=== PATIENT | male | born 1955 | race Caucasian/White ===

== ENCOUNTER 2020-05-02 06:38 | Outpatient (CLI) | payer OTHER, SELFPAY ==
[2020-05-02 07:09] LABS: Basophils Absolute Auto 0.1 K/mm3 (0.0-0.1); Basophils Percent Auto 1.1 % (0.2-1.2); Eosinophils Absolute Auto 0.6 K/mm3 (0-0.3); Eosinophils Percent Auto 9.9 % (0-4.4); Hematocrit 49.7 % (42.0-52.0); Hemoglobin 16.5 g/dL (14.0-18.0); Immature Granulocyte Absolute 0.02 K/mm3 (0.00-0.031); Immature Granulocyte Percent A 0.3 % (0-0.5); Lymphocytes Absolute Auto 1.15 K/mm3 (0.9-3.2); Lymphocytes Percent Auto 18.6 % (18.3-44.2); Mean Corpuscular HGB Conc 33.2 g/dl (32-36); Mean Corpuscular Hemoglobin 30.6 pg (26-34); Mean Corpuscular Volume 92.2 fl (80-100); Mean Platelet Volume 10.2 fl (7.4-10.4); Monocytes Absolute Auto 0.5 K/mm3 (0.1-0.6); Monocytes Percent Auto 8.2 % (2.6-8.5); Neutrophils Absolute Auto 3.8 K/mm3 (1.3-6.7); Neutrophils Percent Auto 61.9 % (45.5-73.1); Platelet Count Result 283 k/mm3 (150-375); Red Blood Count 5.39 M/mm3 (4.6-6.20); Red Cell Distribution Width 13.4 % (11.5-14.5); White Blood Count 6.2 K/mm3 (4.5-10.0)
[2020-05-02 07:26] LABS: Alanine Aminotransferase 20 U/L (4-50); Albumin Level 4.3 g/dL (3.5-5.1); Alkaline Phosphatase 72 U/L (38-126); Anion Gap 7 mmol/L (8-16); Aspartate Amino Transferase 22 U/L (17-59); Bilirubin,Total 0.4 mg/dL (0.2-1.3); Blood Urea Nitrogen 22 mg/dL (9-20); Calcium 8.9 mg/dL (8.4-10.2); Carbon Dioxide 23 mmol/L (22-30); Chloride 107 mmol/L (98-107); Cholesterol 175 mg/dL (0-200); Estimated Glomerular Filt Rate > 60; Glucose 99 mg/dL (75-110); HDL Direct 45 mg/dL; Potassium 4.5 mmol/L (3.4-5.0); Sodium 137 mmol/L (137-145); Triglycerides 94 mg/dL (<150)
[2020-05-02 07:36] LABS: LDL Cholesterol Direct 104 mg/dL
[2020-05-02 07:56] LABS: Prostate Specific Antigen 3.5 ng/mL (< OR = 4.0)
[2020-05-02 08:28] LABS: Free T4 Free Thyroxine 1.01 ng/mL (0.78-2.19)
== END 2020-05-02 06:39 | disposition home or self-care (01) ==
PROVIDERS: PCP Family Medicine; Visit Provider Family Medicine
DX: R60.9 Edema, unspecified (principal); I10 Essential (primary) hypertension; Z79.899 Other long term (current) drug therapy; N40.0 Benign prostatic hyperplasia without lower urinary tract symptoms
CPT/HCPCS: 36415; 80053; 80061; 84153; 84439; 84443; 85025

== ENCOUNTER 2020-08-28 06:41 | Outpatient (CLI) | payer OTHER, SELFPAY | END 2020-08-28 06:42 | disposition home or self-care (01) | PROVIDERS: PCP Family Medicine; Visit Provider Family Medicine | DX: R97.20 Elevated prostate specific antigen [PSA] (principal) | CPT/HCPCS: 36415; 84153 ==

== ENCOUNTER 2021-06-27 06:37 | Outpatient (CLI) | payer OTHER, SELFPAY ==
[2021-06-27 07:17] LABS: Basophils Absolute Auto 0.1 K/mm3 (0.0-0.1); Basophils Percent Auto 1.1 % (0.2-1.2); Eosinophils Absolute Auto 0.3 K/mm3 (0-0.3); Eosinophils Percent Auto 6.1 % (0-4.4); Hematocrit 47.9 % (42.0-52.0); Hemoglobin 15.9 g/dL (14.0-18.0); Immature Granulocyte Absolute 0.02 K/mm3 (0.00-0.031); Immature Granulocyte Percent A 0.4 % (0-0.5); Lymphocytes Percent Auto 20.4 % (18.3-44.2); Mean Corpuscular HGB Conc 33.2 g/dl (32-36); Mean Corpuscular Hemoglobin 31.5 pg (26-34); Mean Corpuscular Volume 94.9 fl (80-100); Mean Platelet Volume 9.9 fl (7.4-10.4); Monocytes Absolute Auto 0.5 K/mm3 (0.1-0.6); Monocytes Percent Auto 9.3 % (2.6-8.5); Neutrophils Absolute Auto 3.4 K/mm3 (1.3-6.7); Neutrophils Percent Auto 62.7 % (45.5-73.1); Platelet Count Result 280 k/mm3 (150-375); Red Blood Count 5.05 M/mm3 (4.6-6.20); Red Cell Distribution Width 13.2 % (11.5-14.5); White Blood Count 5.4 K/mm3 (4.5-10.0)
[2021-06-27 07:28] LABS: Alanine Aminotransferase 17 U/L (4-50); Albumin Level 4.2 g/dL (3.5-5.1); Alkaline Phosphatase 60 U/L (38-126); Anion Gap 6 mmol/L (8-16); Aspartate Amino Transferase 21 U/L (17-59); Bilirubin,Total 0.7 mg/dL (0.2-1.3); Blood Urea Nitrogen 21 mg/dL (9-20); Calcium 9.3 mg/dL (8.4-10.2); Carbon Dioxide 26 mmol/L (22-30); Chloride 107 mmol/L (98-107); Cholesterol 178 mg/dL (0-200); Estimated Glomerular Filt Rate > 60; Glucose 103 mg/dL (65-110); HDL Direct 49 mg/dL; Potassium 4.5 mmol/L (3.4-5.0); Sodium 139 mmol/L (137-145); Triglycerides 125 mg/dL (<150)
[2021-06-27 07:39] LABS: LDL Cholesterol Direct 100 mg/dL
[2021-06-27 08:07] LABS: Free T4 Free Thyroxine 1.04 ng/mL (0.78-2.19)
== END 2021-06-27 06:38 | disposition home or self-care (01) ==
PROVIDERS: PCP Family Medicine; Visit Provider Family Medicine
DX: Z51.81 Encounter for therapeutic drug level monitoring (principal); Z79.899 Other long term (current) drug therapy; E66.09 Other obesity due to excess calories
CPT/HCPCS: 36415; 80053; 80061; 84439; 84443; 85025

== ENCOUNTER 2021-12-16 07:31 | Outpatient (CLI) | payer MEDICARE, OTHER, SELFPAY ==
--- NOTE | ~2021-12-16 | XR_ITS ---
EXAMINATION: XR shoulder RT min 2V INDICATION: Right arm pain TECHNIQUE: Four views of the right shoulder are submitted. COMPARISON: None FINDINGS: Normal alignment. No fracture. There is mild osteoarthritis of the glenohumeral and acromio clavicular joints. There is heterotopic ossification at the cranial aspect of the acromioclavicular j oint possibly reflecting prior injury. Soft tissues are unremarkable. IMPRESSION: 1. Osteoarthritis without acute osseous abnormality. Reviewed, dictated and finalized at location A.
--- NOTE | ~2021-12-16 | XR_ITS ---
EXAMINATION: XR humerus RT INDICATION: Right arm pain TECHNIQUE: Two views of the right humerus are obtained. COMPARISON: None available FINDINGS: Bone alignment is normal. There is no fracture. The soft tissues are unremarkable. IMPRESSION: 1. No acute osseous abnormality. Reviewed, dictated and finalized at location A.
--- NOTE | ~2021-12-16 | XR_ITS ---
EXAMINATION:XR_[id number] DATE: 12/16/2021 08:22 INDICATION: Neck pain TECHNIQUE: AP, lateral, lateral swimmers and odontoid views of the cervical spine are provided. COMPARISON: None FINDINGS: There are 4 mm of retrolisthesis of C5 on C6 and C6 on C7. The odontoid is intact. No fract ure is identified. There is severe loss of intervertebral disc space height at C5-6 and C6-7 and mode rate loss of disc space height at C4-5. The vertebral body heights are maintained. There is moderate to severe multilevel facet and uncovertebral joint osteoarthritis. Prevertebral soft tissues are norm al. IMPRESSION: 1. Severe cervical spondylosis without acute findings. Reviewed, dictated and finalized at location A.
[2021-12-16 08:20] LABS: Basophils Absolute Auto 0.1 K/mm3 (0.0-0.1); Basophils Percent Auto 0.7 % (0.2-1.2); Eosinophils Absolute Auto 0.2 K/mm3 (0-0.3); Eosinophils Percent Auto 3.3 % (0-4.4); Hematocrit 48.1 % (42.0-52.0); Hemoglobin 15.8 g/dL (14.0-18.0); Immature Granulocyte Absolute 0.04 K/mm3 (0.00-0.031); Immature Granulocyte Percent A 0.6 % (0-0.5); Lymphocytes Absolute Auto 1.24 K/mm3 (0.9-3.2); Lymphocytes Percent Auto 17.8 % (18.3-44.2); Mean Corpuscular HGB Conc 32.8 g/dl (32-36); Mean Corpuscular Hemoglobin 30.6 pg (26-34); Mean Corpuscular Volume 93.2 fl (80-100); Mean Platelet Volume 10.6 fl (7.4-10.4); Monocytes Absolute Auto 0.6 K/mm3 (0.1-0.6); Monocytes Percent Auto 7.9 % (2.6-8.5); Neutrophils Absolute Auto 4.9 K/mm3 (1.3-6.7); Neutrophils Percent Auto 69.7 % (45.5-73.1); Platelet Count Result 268 k/mm3 (150-375); Red Blood Count 5.16 M/mm3 (4.6-6.20); Red Cell Distribution Width 13.1 % (11.5-14.5)
[2021-12-16 08:33] LABS: Alanine Aminotransferase 17 U/L (4-50); Albumin Level 4.4 g/dL (3.5-5.1); Alkaline Phosphatase 72 U/L (38-126); Anion Gap 6 mmol/L (8-16); Aspartate Amino Transferase 20 U/L (17-59); Bilirubin,Total 0.7 mg/dL (0.2-1.3); Blood Urea Nitrogen 23 mg/dL (9-20); Carbon Dioxide 26 mmol/L (22-30); Chloride 106 mmol/L (98-107); Cholesterol 184 mg/dL (0-200); Estimated Glomerular Filt Rate > 60; Glucose 98 mg/dL (65-110); HDL Direct 46 mg/dL; Potassium 4.7 mmol/L (3.4-5.0); Sodium 138 mmol/L (137-145); Triglycerides 79 mg/dL (<150)
[2021-12-16 08:44] LABS: LDL Cholesterol Direct 102 mg/dL
[2021-12-16 09:03] LABS: Prostate Specific Antigen 1.1 ng/mL (< OR = 4.0)
== END 2021-12-16 07:32 | disposition home or self-care (01) ==
LOC: ANHLAB 07:37
PROVIDERS: PCP Family Medicine; Visit Provider Physician Assistant
DX: E66.09 Other obesity due to excess calories (principal); I10 Essential (primary) hypertension; Z68.33 Body mass index [BMI] 33.0-33.9, adult; Z12.5 Encounter for screening for malignant neoplasm of prostate; M79.10 Myalgia, unspecified site; M47.892 Other spondylosis, cervical region; M19.011 Primary osteoarthritis, right shoulder
CPT/HCPCS: 36415; 72040; 73030; 73060; 80053; 80061; 84153; 84443; 85025; G0103

== ENCOUNTER 2022-01-02 01:00 | Day surgery (SDC) | payer MEDICARE, OTHER, SELFPAY ==
[2021-12-20 08:52] VITALS: BMI 30.6
--- NOTE | 2022-01-02 07:54 | WPDANESEPPF ---
Anes - Initial Pre Proc Eval Procedure: Operation Date: 01/02/22 09:00 Proposed Procedures p Screening Colonoscopy - Stanley Mc MD Date/Time: 01/02/22 07:54 Surgeon: Stanley Mc MD Pre Op Diagnosis: neoplasm screening Patient Data Age: 66 Gender: M Height: 1.83 m Weight: 102.4 kg Allergies Allergy/AdvReac Type Severity Reaction Status Date / Time metaxalone Allergy Unknown hives Verified 12/20/21 09:10 Home Medications Medication Instructions Recorded Confirmed Type celecoxib 200 mg capsule 200 mg PO DAILY #90 cap 10/17/20 12/20/21 Rx tamsulosin 0.4 mg capsule See Rx Instructions .ROUTE 12/27/20 12/20/21 Rx .COMPLEX #90 cap pantoprazole 40 mg tablet,delayed See Rx Instructions .ROUTE 08/12/21 12/20/21 Rx release .COMPLEX #30 tablet finasteride 5 mg tablet See Rx Instructions .ROUTE 10/29/21 12/20/21 Rx .COMPLEX #30 tablet alprazolam 0.5 mg tablet 0.5 mg PO QID #60 tablet 11/11/21 12/20/21 Rx lisinopril 20 mg tablet See Rx Instructions .ROUTE 12/11/21 12/20/21 Rx .COMPLEX #30 tablet Patient hx anesthesia problems: none Family hx anesthesia problems: none Results Review: All pre-operative results and documents have been reviewed as part of the pre-operative evaluation. [facility] Past Medical History Medical History (Updated 01/02/22 @ 07:55 by Tor Anderson MD) Anxiety Essential (primary) hypertension Obesity, unspecified Primary osteoarthritis of both knees 2017 left TK Surgical History Surgical History History of knee replacement Hx of cholecystectomy Family History Family History Father Acute myocardial infarction Family history of cardiovascular disease, Onset Age: 74 Mother Cerebrovascular accident Family history of glaucoma, Onset Age: 82 Other No family history of hypertension Social History Social History (Updated 11/22/21 @ 09:08 by Socorro Márquez CMA) Smoking status: Never smoker Alcohol intake: current Alcohol use details: occasional social Substance use: never Substance use type: does not use Living arrangements: with family Spiritual care concerns: No Anes - Eval Final PreProcedure Day of Procedure 01/02/22 07:54 Patient weight: obese Heart: regular rate and rhythm Lungs: clear to auscultation and normal air movement Airway: Mallampati scale class II Neurological: alert and oriented Last oral intake: >/= 8 hours ASA classification: II Emergent: no Anesthetic plan: proceed Anesthesia type and monitoring: general GIVS Results Review: All pre-operative results and documents have been reviewed as part of the pre-operative evaluation. Informed Consent: The patient's anesthetic plan and its attendant risks and benefits were discussed with the patient/family/POA. Questions were solicited and answers provided to the satisfaction of the patient/family/POA.
[2022-01-02 07:57] VITALS: BP 156/98; PULSE 93; RESP 18; TEMP 36.6; O2SAT 96
[2022-01-02] MEDS: LACTATED RINGERS 1,000 ML 150 ML IV CONT (08:11)
--- NOTE | 2022-01-02 09:10 | WPDGICN ---
Assessment and Plan Assessment and plan (1) Encounter for screening colonoscopy: Code(s): Z12.11 - Encounter for screening for malignant neoplasm of colon Status: Acute Assessment and Plan: Patient presents for neoplasia screening colonoscopy. Appears to be at average risk for colon polyps. Further recommendations will be given after endoscopy. GI Consult Note Consult date/time: 01/02/22 09:10 HPI: Robert Joyner is a 66 year old male Presents for screening colonoscopy. Patient's current weight appetite and bowel movements are normal. He denies abdominal pain. He has had no bleeding. Family history is noncontributory. Most recent colonoscopy 11 years ago was unremarkable. Patient does have a history of retained common bile duct gallstones requiring ERCP in 2013. His this has recovered well with no immediate problems. Review of Systems Review of Systems: All systems reviewed & are unremarkable except as noted in HPI and below PMFSH Past Medical History Medical History (Updated 01/02/22 @ 09:11 by Stanley Mc MD) Anxiety Essential (primary) hypertension Obesity, unspecified Primary osteoarthritis of both knees 2017 left TK Surgical History Surgical History History of knee replacement Hx of cholecystectomy Family History Family History Father Acute myocardial infarction Family history of cardiovascular disease, Onset Age: 74 Mother Cerebrovascular accident Family history of glaucoma, Onset Age: 82 Other No family history of hypertension Social History Social History (Updated 11/22/21 @ 09:08 by Socorro Márquez CMA) Smoking status: Never smoker Alcohol intake: current Alcohol use details: occasional social Substance use: never Substance use type: does not use Living arrangements: with family Spiritual care concerns: No Meds Home Medications and Allergies Home Medications Medication Instructions Recorded Confirmed Type celecoxib 200 mg capsule 200 mg PO DAILY #90 cap 10/17/20 12/20/21 Rx tamsulosin 0.4 mg capsule See Rx Instructions .ROUTE 12/27/20 12/20/21 Rx .COMPLEX #90 cap pantoprazole 40 mg tablet,delayed See Rx Instructions .ROUTE 08/12/21 12/20/21 Rx release .COMPLEX #30 tablet finasteride 5 mg tablet See Rx Instructions .ROUTE 10/29/21 12/20/21 Rx .COMPLEX #30 tablet alprazolam 0.5 mg tablet 0.5 mg PO QID #60 tablet 11/11/21 12/20/21 Rx lisinopril 20 mg tablet See Rx Instructions .ROUTE 12/11/21 12/20/21 Rx .COMPLEX #30 tablet Allergies Allergy/AdvReac Type Severity Reaction Status Date / Time metaxalone Allergy Unknown hives Verified 12/20/21 09:10 Vital Signs Vital Signs - 24 hr 01/02/22 07:57 Temperature 97.8 F Pulse Rate 93 Respiratory Rate 18 Blood Pressure 156/98 H Pulse Oximetry 96 Exam Narrative: Physical exam reveals patient be alert. Vital signs stable. HEENT exam is unremarkable. Patient is anicteric. Lungs are clear to auscultation and percussion. Heart is without murmur or extra sounds. Abdominal exam bowel sounds are present soft nontender with no hepatosplenomegaly. Digital external rectal exam is normal.
[2022-01-02 09:43] VITALS: BP 126/84; PULSE 76; RESP 19; O2SAT 96
[2022-01-02 09:53] VITALS: BP 144/93; PULSE 66; RESP 18; O2SAT 98
[2022-01-02 10:03] VITALS: BP 145/95; PULSE 68; RESP 17; O2SAT 99
== END 2022-01-02 10:09 | disposition home or self-care (01) ==
PROVIDERS: PCP Family Medicine; Visit Provider Internal Medicine Gastroenterology
PROC: 0DJD8ZZ Inspection of Lower Intestinal Tract, Via Natural or Artificial Opening Endoscopic (ICD-10-PCS; CPT 45378; principal; 2022-01-02 09:00)
DX: Z12.11 Encounter for screening for malignant neoplasm of colon (principal); K64.8 Other hemorrhoids; K57.30 Diverticulosis of large intestine without perforation or abscess without bleeding; I10 Essential (primary) hypertension; F41.9 Anxiety disorder, unspecified; E66.9 Obesity, unspecified; Z68.31 Body mass index [BMI] 31.0-31.9, adult
CPT/HCPCS: G0121; J2704; J7120

== ENCOUNTER 2023-01-09 06:50 | Outpatient (CLI) | payer MEDICARE, OTHER, SELFPAY ==
[2023-01-09 07:15] LABS: Basophils Absolute Auto 0.1 K/mm3 (0.0-0.1); Basophils Percent Auto 0.7 % (0.2-1.2); Eosinophils Absolute Auto 0.4 K/mm3 (0-0.3); Eosinophils Percent Auto 4.7 % (0-4.4); Hemoglobin 16.5 g/dL (14.0-18.0); Immature Granulocyte Absolute 0.03 K/mm3 (0.00-0.031); Immature Granulocyte Percent A 0.4 % (0-0.5); Lymphocytes Absolute Auto 1.42 K/mm3 (0.9-3.2); Lymphocytes Percent Auto 18.7 % (18.3-44.2); Mean Corpuscular HGB Conc 32.4 g/dl (32-36); Mean Corpuscular Hemoglobin 30.2 pg (26-34); Mean Corpuscular Volume 93.4 fl (80-100); Monocytes Absolute Auto 0.5 K/mm3 (0.1-0.6); Monocytes Percent Auto 7.1 % (2.6-8.5); Neutrophils Absolute Auto 5.2 K/mm3 (1.3-6.7); Neutrophils Percent Auto 68.4 % (45.5-73.1); Platelet Count Result 318 k/mm3 (150-375); Red Blood Count 5.46 M/mm3 (4.6-6.20); White Blood Count 7.6 K/mm3 (4.5-10.0)
[2023-01-09 07:28] LABS: Alanine Aminotransferase 24 U/L (6-50); Albumin Level 4.4 g/dL (3.5-5.1); Alkaline Phosphatase 78 U/L (38-126); Anion Gap 7 mmol/L (8-16); Aspartate Amino Transferase 18 U/L (17-59); Bilirubin,Total 0.6 mg/dL (0.2-1.3); Blood Urea Nitrogen 18 mg/dL (9-20); Calcium 9.2 mg/dL (8.4-10.2); Carbon Dioxide 29 mmol/L (22-30); Chloride 104 mmol/L (98-107); Cholesterol 163 mg/dL (0-200); Estimated Glomerular Filt Rate > 60; Glucose 104 mg/dL (65-110); HDL Direct 41 mg/dL; Potassium 4.8 mmol/L (3.4-5.0); Sodium 140 mmol/L (137-145); Triglycerides 111 mg/dL (<150)
[2023-01-09 07:39] LABS: Hemoglobin A1C 5.3 % (<5.7); LDL Cholesterol Direct 95 mg/dL
[2023-01-09 07:59] LABS: Prostate Specific Antigen 2.9 ng/mL (< OR = 4.0)
[2023-01-09 08:48] LABS: Hepatitis C Virus Antibody Negative (Negative)
== END 2023-01-09 06:51 | disposition home or self-care (01) ==
LOC: ANHLAB 06:51
PROVIDERS: PCP Family Medicine; Visit Provider Physician Assistant
DX: R73.01 Impaired fasting glucose (principal); Z79.899 Other long term (current) drug therapy; I10 Essential (primary) hypertension; K21.9 Gastro-esophageal reflux disease without esophagitis; N40.0 Benign prostatic hyperplasia without lower urinary tract symptoms; E66.09 Other obesity due to excess calories; Z68.33 Body mass index [BMI] 33.0-33.9, adult; U07.1 COVID-19; Z12.5 Encounter for screening for malignant neoplasm of prostate; Z11.59 Encounter for screening for other viral diseases
CPT/HCPCS: 36415; 80053; 80061; 83036; 84153; 84443; 85025; 86803; G0103

== ENCOUNTER 2023-09-14 09:00 | Outpatient (RCR) | payer MEDICARE, OTHER, SELFPAY ==
--- NOTE | 2023-08-14 10:29 | PTOPEVAL1 ---
Assessment and note entered by Parul Goodson, PT Evaluation Information Assessment Status Evaluation Diagnosis unspec Left shoulder lesion, left shoulder pain Onset ~3-4 months ago Subjective Information Pt repots certain ranges like reaching back or over will have pain. Also is a golfer, but will be waiting for Spring to start again. Reports problems in both arms buth left shoulder will wake him up at night. No traumatic event for left shoulder. Shooting pain at times, intense. Repots has arthritis also in shoulder, neck, back, and hands but is a different type of pain. Feels that elevation of the arm is what triggers pain. Alleviating factors: will stop doing aggravating activity, modifies activity. Reports Celebrex as needed, but no prescription medications for pain, OTC medications help but don't resolve issue. Reported Pain Level Pain Score 0: Self Report Assessment PT Clinical Summary Pt presents with left shoulder pain without traumatic event. Reports pain with elevation of arm most, and pain at night waking him from sleep. Pt demos multiple areas of weakness of left shoulder compared to right, pain with resistance testing and impingement symptoms at end-ranges, and decreased ROM compared to right. Special testing suggestive of infraspinatus lesion, and impingement of supraspinatus. Pt will benefit from therapy to address deficits, reduce pain, and return to PLOF. Plan of Care Interventions Electrical Stimulation,Hot Pack/Cold Pack,Manual Therapy,Neuro Re-education,Therapeutic Activities, Therapeutic Exercise,Ultrasound PT Services Indicated Yes Treatment Frequency and 1-2 x weekly x 8 visits Duration These treatments will address the objective and functional deficits as defined above. The patient will be advanced safely and appropriately in order for the patient to progress towards his/her prior level of function. Additional exercises will be introduced and as well as a comprehensive home exercise program upon discharge, if needed, ?to ensure carryover of functional gains achieved in the clinic. This treatment plan has been reviewed and agreement upon by the patient.
--- NOTE | 2023-08-14 10:31 | OPREHPOC ---
Outpatient Therapy Plan of Care This is a Multidisciplinary Plan of Care that may contain components documented by all disciplines (PT, OT, and ST.) PT Problem 1 PT Problem #1 Knowledge Deficit PT Goal 1 Goal Pt will be independent in HEP Pt will verbalize understanding of diagnosis and prognosis Target Visit 6 PT Problem 2 PT Problem #2 Impaired Range of Motion PT Goal 1 Goal Pt will demo equal AROM of effected left shoulder to right in flexion and abduction Target Visit 8 PT Goal 1 Goal Pt will demo equal strength RUE and LUE in all tested planes Target Visit 6 PT Goal 2 Goal Pt will demo strength of 4/5 in all tested planes Target Visit 8 PT Problem 4 PT Problem #4 Pain PT Goal 1 Goal Pt will report greatest pain level at 3/10 or less to sleeping and ADLS Target Visit 6 PT Goal 2 Goal Pt will report resolution of pain to return to PLOF Target Visit 8
--- NOTE | 2023-08-28 09:36 | PCPTNOTE ---
Clinic called patient and cancelled appointment on 08/20/23 due to staffing shortages.
--- NOTE | 2023-09-14 10:36 | PTOPDC ---
Assessment and note entered by Parul Goodson, PT Assessment Status Discharge Diagnosis unspec Left shoulder lesion Onset ~3-4 months ago Subjective Information Is now able to reach back and over without pain. Hasn't tested golfing yet Left shoulder is not longer waking him up at night Self-percieved improvement: 90% Reported Pain Level Pain Score 0: Self Report Assessment PT Clinical Summary Pt has attended therapy consistently for left shoulder pain over 4 weeks time. Pt pain has reduced from 8/10 to 2/10 at worst rating, ROM is now surpassed unaffected UE, strength though not equal to RUE in flexion and abduction is only a half muscle grade less. Pt demo'd ability to swing golf club at full effort without pain as well. Pt was educated on HEP and continuing to perform activities with his LUE to continue strengthening while maintaining appropriate scapular position. Pt has done very well with therapy very quickly, thus he is being discharged from skilled services in favor of continued independent program.
== END 2023-09-14 11:32 | disposition home or self-care (01) ==
LOC: ANHHIPT 09:00
PROVIDERS: PCP Emergency Medicine; Visit Provider Emergency Medicine
DX: S46.002D Unspecified injury of muscle(s) and tendon(s) of the rotator cuff of left shoulder, subsequent encounter (principal)
CPT/HCPCS: 97014; 97110; 97112; 97140; 97161; 97530; 97750; G0283

== ENCOUNTER 2024-07-07 06:52 | Outpatient (CLI) | payer MEDICARE, OTHER, SELFPAY ==
[2024-07-07 08:03] LABS: Hemoglobin A1C 5.6 % (<5.7)
[2024-07-07 08:06] LABS: Alanine Aminotransferase 24 U/L (6-50); Albumin Level 4.2 g/dL (3.5-5.1); Alkaline Phosphatase 55 U/L (38-126); Anion Gap 12 mmol/L (4-12); Aspartate Amino Transferase 21 U/L (17-59); Bilirubin,Total 0.7 mg/dL (0.2-1.3); Blood Urea Nitrogen 19 mg/dL (9-20); Calcium 9.1 mg/dL (8.4-10.2); Carbon Dioxide 22 mmol/L (22-30); Chloride 105 mmol/L (98-107); Cholesterol 192 mg/dL (0-200); Estimated Glomerular Filt Rate > 60; Glucose 101 mg/dL (65-110); HDL Direct 54 mg/dL; Potassium 4.3 mmol/L (3.4-5.0); Sodium 139 mmol/L (137-145); Triglycerides 119 mg/dL (<150)
[2024-07-07 08:17] LABS: LDL Cholesterol Direct 102 mg/dL
[2024-07-07 08:37] LABS: Prostate Specific Antigen 1.4 ng/mL (< OR = 4.0)
== END 2024-07-07 06:53 | disposition home or self-care (01) ==
PROVIDERS: PCP Emergency Medicine; Visit Provider Emergency Medicine
DX: Z12.5 Encounter for screening for malignant neoplasm of prostate (principal); I10 Essential (primary) hypertension; N40.0 Benign prostatic hyperplasia without lower urinary tract symptoms; R73.01 Impaired fasting glucose; Z79.899 Other long term (current) drug therapy
CPT/HCPCS: 36415; 80053; 80061; 83036; 84153; G0103

== ENCOUNTER 2025-02-01 06:58 | Outpatient (CLI) | payer MEDICARE, OTHER, SELFPAY ==
[2025-02-01 07:48] LABS: Hemoglobin 16.3 g/dL (14.0-18.0); Mean Corpuscular HGB Conc 32.6 g/dl (32-36); Mean Corpuscular Hemoglobin 30.2 pg (26-34); Mean Corpuscular Volume 92.6 fl (80-100); Platelet Count Result 255 k/mm3 (150-375); Red Cell Distribution Width 13.6 % (11.5-14.5); White Blood Count 6.1 K/mm3 (4.5-10.0)
[2025-02-01 08:01] LABS: Alanine Aminotransferase 19 U/L (6-50); Albumin Level 4.3 g/dL (3.5-5.1); Alkaline Phosphatase 76 U/L (38-126); Anion Gap 8 mmol/L (4-12); Aspartate Amino Transferase 25 U/L (17-59); Bilirubin,Total 0.5 mg/dL (0.2-1.3); Blood Urea Nitrogen 20 mg/dL (9-20); Calcium 9.7 mg/dL (8.4-10.2); Carbon Dioxide 25 mmol/L (22-30); Chloride 105 mmol/L (98-107); Cholesterol 192 mg/dL (0-200); Estimated Glomerular Filt Rate > 60; Glucose 105 mg/dL (65-110); HDL Direct 50 mg/dL; Potassium 4.6 mmol/L (3.4-5.0); Sodium 138 mmol/L (137-145); Triglycerides 110 mg/dL (<150)
[2025-02-01 08:12] LABS: LDL Cholesterol Direct 99 mg/dL
[2025-02-01 08:21] LABS: Hemoglobin A1C 5.3 % (<5.7)
== END 2025-02-01 06:59 | disposition home or self-care (01) ==
LOC: ANHLAB 07:00
PROVIDERS: PCP Family Medicine; Visit Provider Family Medicine
DX: I10 Essential (primary) hypertension (principal); R73.01 Impaired fasting glucose; E66.09 Other obesity due to excess calories; Z68.33 Body mass index [BMI] 33.0-33.9, adult; Z79.899 Other long term (current) drug therapy
CPT/HCPCS: 36415; 80053; 80061; 83036; 84443; 85027